=== PATIENT | male | born 1990 | race Caucasian/White ===

== ENCOUNTER 2016-10-09 20:05 | Emergency (ER) | payer BC | END 2016-10-09 22:35 | disposition home or self-care (01) | LOC: ER1 20:05 | DX: S00.05XA Superficial foreign body of scalp, initial encounter (principal); W45.8XXA Other foreign body or object entering through skin, initial encounter; Y93.59 Activity, other involving other sports and athletics played individually; Y92.828 Other wilderness area as the place of occurrence of the external cause; Y99.8 Other external cause status; Z23 Encounter for immunization | CPT/HCPCS: 90471; 90715; 99283; Q0162 ==